=== PATIENT | male | born 1965 | race American Indian/Alaskan Native ===

== ENCOUNTER 2016-12-03 13:18 | Emergency (ER) | payer OTHER ==
[2016-12-03] MEDS ORDERED: CATAPRES PO ONE (13:37)
[2016-12-03 14:31] LABS: Basophils % (Auto) 0.4 % (0.0-1.8); Eosinophils % (Auto) 0.6 % (0.0-4.3); Hematocrit 44.8 % (35.5-45.6); Hemoglobin 15.3 gm/dl (11.8-15.2); Mean Corpuscular HGB Conc 34 % (32-34); Mean Corpuscular Hemoglobin 33 pg (28-32); Mean Corpuscular Volume 98 fl (84-94); Red Blood Count 4.57 M/mm3 (3.65-5.03); Red Cell Distribution Width 13.1 % (13.2-15.2); White Blood Count 5.7 K/mm3 (4.5-11.0)
[2016-12-03 14:32] LABS: Urine Drugs of Abuse Note Disclamer
[2016-12-03 14:41] LABS: Alanine Aminotransferase 62 units/L (7-56); Albumin 4.4 g/dL (3.9-5); Albumin/Globulin Ratio 1.1 %; Alkaline Phosphatase 235 units/L (35-129); Anion Gap 21 mmol/L; Bilirubin,Total 0.6 mg/dL (0.1-1.2); Blood Urea Nitrogen 9 mg/dL (9-20); Calcium 9.4 mg/dL (8.4-10.2); Carbon Dioxide 20 mmol/L (22-30); Glucose 396 mg/dL (75-100); Magnesium 1.9 mg/dL (1.7-2.3); Sodium 130 mmol/L (137-145); Total Protein 8.4 g/dL (6.3-8.2)
[2016-12-03 14:47] LABS: Platelet Count 94 K/mm3 (140-440)
[2016-12-03 14:51] LABS: Bacteria,Urine 1+ /HPF (Negative); Bilirubin,Urine NEG (Negative); Blood,Urine NEG (Negative); Ketones,Urine NEG (Negative); Leukocyte Esterase,Urine NEG (Negative); Mucus,Urine FEW /HPF; Nitrite,Urine NEG (Negative); Protein,Urine <15 mg/dL mg/dL (Negative); Urobilinogen,Urine < 2.0 mg/dL (<2.0); WBC,Urine < 1.0 /HPF (0.0-6.0)
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
[2016-12-03] MEDS ORDERED: NACL 0.9% 1000 ML 1,000 ML IV ONE (19:19)
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
[2016-12-03 22:38] VITALS: BP 148/89
== END 2016-12-03 22:37 | disposition home or self-care (01) ==
LOC: ED 13:18
DX: S06.0X9A Concussion with loss of consciousness of unspecified duration, initial encounter (principal); I10 Essential (primary) hypertension; E11.9 Type 2 diabetes mellitus without complications; R94.5 Abnormal results of liver function studies; V49.40XA Driver injured in collision with unspecified motor vehicles in traffic accident, initial encounter; Y93.89 Activity, other specified; Y99.9 Unspecified external cause status; Y92.410 Unspecified street and highway as the place of occurrence of the external cause
CPT/HCPCS: 36415; 70450; 72040; 80053; 80307; 81001; 82140; 82962; 83036; 83735; 84443; 85025; 93005; 93010; 96361; 96374; 99285; G0480; J7030; 80320; J1815

== ENCOUNTER 2017-12-06 08:56 | Emergency (ER) | payer SELFPAY ==
[2017-12-06 09:45] LABS: Basophils % (Auto) 0.5 % (0.0-1.8); Eosinophils # (Auto) 0.1 K/mm3 (0.0-0.4); Eosinophils % (Auto) 1.2 % (0.0-4.3); Lymphocytes # (Auto) 2.4 K/mm3 (1.2-5.4); Lymphocytes % (Auto) 48.7 % (13.4-35.0); Mean Corpuscular HGB Conc 33 % (32-34); Mean Corpuscular Hemoglobin 33 pg (28-32); Mean Corpuscular Volume 100 fl (84-94); Monocytes # (Auto) 0.4 K/mm3 (0.0-0.8); Monocytes % (Auto) 8.8 % (0.0-7.3); Platelet Count 114 K/mm3 (140-440); Red Cell Distribution Width 13.4 % (13.2-15.2)
[2017-12-06 09:58] LABS: BUN/Creatinine Ratio 20; Blood Urea Nitrogen 12 mg/dL (9-20); Calcium 9.3 mg/dL (8.4-10.2); Hemolysis Index 24
[2017-12-06 10:12] LABS: Bacteria,Urine 1+ /HPF (Negative); Bilirubin,Urine NEG (Negative); Blood,Urine SM (Negative); Color,Urine Straw (Yellow); Mucus,Urine FEW /HPF; Protein,Urine <15 mg/dL mg/dL (Negative); Urobilinogen,Urine < 2.0 mg/dL (<2.0)
[2017-12-06] MEDS ORDERED: NACL 0.9% 1000 ML 1,000 ML IV ONE ×2 (12:53→12:54)
[2017-12-06] MEDS ORDERED: HumuLIN R IV ONE (12:54)
--- NOTE | 2017-12-06 12:56 | Emergency Department Report ---
Blank Doc - Documentation Documentation: Patient is a 52-year-old [place] male who has some mild dizziness today at work. 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 Patient besides the dizziness is had no other symptoms. Patient denies nausea vomiting chest pain shortness of breath. The patient does have some urinary frequency however. Patient's blood sugar is 455 here in the emergency department but does not show any other evidence of DKA. Patient moved to a treatment room at this time for fluids as well as insulin. Recheck sugar and reassess. Also patient is complaining of some penile irritation. Patient is noncircumcised and does have some purulent drainage from the tip of the penis or from around the foreskin. Is unable to determine the exact location.
--- NOTE | 2017-12-06 14:21 | Emergency Department Report ---
ED General Adult HPI - General Chief complaint: Hyperglycemia Stated complaint: HIGH BLOOD SUGAR Time Seen by Provider: 12/06/17 12:42 Source: patient Mode of arrival: Ambulatory Limitations: No Limitations - History of Present Illness Initial comments: This is a 52 y.o. A.A. male that presents with dizziness and headache that started this morning when he woke up. Patient reports going to work at [employer] and feeling very dizzy and lightheaded. He went to the nursing station at work and they took vitals and checked glucose. The first BG 521 and second 471. They sent him directly to the emergency room for evaluation. Patient reports being admitted here last year in December and not sure of all the diagnosis. He is currently not taking anything daily. He also complains of purulent discharge from foreskin on uncircumcised penis. Denies possibility of STD, chest pain, SOB, nausea, vomiting, frequency, urgency, and headache resolved. -: This morning Location: head (headache) Radiation: non-radiation Severity scale (0 -10): 7 Improves with: none Worsens with: movement Associated Symptoms: headaches, other (dizzy) Treatments Prior to Arrival: none - Related Data Previous Rx's Medication Instructions Recorded Last Taken Type Folic Acid [Folvite] 1 mg PO QDAY #30 tablet 12/04/14 Unknown Rx Multivitamin [Multi Vitamin Daily] 1 each PO DAILY #30 tablet 12/04/14 Unknown Rx Pantoprazole Sodium [Protonix] 20 mg PO BID #60 tablet. 12/04/14 Unknown Rx Thiamine [Vitamin B-1] 100 mg PO ONCE #30 tablet 12/04/14 Unknown Rx HYDROcodone/APAP 5-325 [[place] 1 each PO Q6HR PRN #15 tablet 12/03/16 Unknown Rx 5/325] Metformin HCl [Glucophage] 500 mg PO BID #60 tablet 12/03/16 Unknown Rx amLODIPine [Norvasc] 10 mg PO DAILY #30 tab 12/03/16 Unknown Rx Doxycycline Monohydrate 100 mg PO BID 7 Days #14 tablet 12/06/17 Unknown Rx metFORMIN [Glucophage] 500 mg PO BID #60 tablet 12/06/17 Unknown Rx Allergies Allergy/AdvReac Type Severity Reaction Status Date / Time No Known Allergies Allergy Verified 12/03/14 07:15 ED Review of Systems ROS: Stated complaint: HIGH BLOOD SUGAR Other details as noted in HPI Constitutional: weakness. denies: chills, fever Eyes: denies: eye pain, eye discharge, vision change Respiratory: denies: cough, shortness of breath, wheezing Cardiovascular: denies: chest pain, palpitations, edema, syncope Gastrointestinal: denies: abdominal pain, nausea, vomiting, diarrhea Genitourinary: discharge (yellow-greenish discharge). denies: urgency, dysuria , frequency, hematuria, testicular pain, testicular mass Neurological: denies: headache, weakness, paresthesias Psychiatric: denies: anxiety, depression ED Past Medical Hx - Past Medical History Previous Medical History?: Yes Hx Hypertension: Yes (diag 12/03/2016 in ed) Hx Congestive Heart Failure: No Hx Diabetes: Yes (diag 12/03/2016 in ed) Hx Asthma: No Hx COPD: No Hx HIV: No Additional medical history: do not take meds - Surgical History Past Surgical History?: Yes Additional Surgical History: Back - Social History Smoking Status: Current Every Day Smoker Substance Use Type: Alcohol - Medications Home Medications: Home Medications Medication Instructions Recorded Confirmed Last Taken Type Folic Acid [Folvite] 1 mg PO QDAY #30 tablet 12/04/14 Unknown Rx Multivitamin [Multi Vitamin Daily] 1 each PO DAILY #30 tablet 12/04/14 Unknown Rx Pantoprazole Sodium [Protonix] 20 mg PO BID #60 tablet.dr 12/04/14 Unknown Rx Thiamine [Vitamin B-1] 100 mg PO ONCE #30 tablet 12/04/14 Unknown Rx HYDROcodone/APAP 5-325 [[place] 1 each PO Q6HR PRN #15 tablet 12/03/16 Unknown Rx 5/325] Metformin HCl [Glucophage] 500 mg PO BID #60 tablet 12/03/16 Unknown Rx amLODIPine [Norvasc] 10 mg PO DAILY #30 tab 12/03/16 Unknown Rx Doxycycline Monohydrate 100 mg PO BID 7 Days #14 tablet 12/06/17 Unknown Rx metFORMIN [Glucophage] 500 mg PO BID #60 tablet 12/06/17 Unknown Rx ED Physical Exam - General Limitations: No Limitations General appearance: alert, in no apparent distress - Respiratory Respiratory exam: Present: normal lung sounds bilaterally. Absent: respiratory distress - Cardiovascular Cardiovascular Exam: Present: regular rate, normal rhythm, normal heart sounds. Absent: systolic murmur, diastolic murmur, rubs, gallop - GI/Abdominal GI/Abdominal exam: Present: soft, normal bowel sounds. Absent: distended, tenderness, guarding, rebound, rigid, organomegaly, mass - exam: Present: urethral discharge (purulent discharge). Absent: testicular tenderness, scrotal swelling, vertical testicular lie, circumcision ( uncircumcised) - Neurological Exam Neurological exam: Present: alert, oriented X3, normal gait - Psychiatric Psychiatric exam: Present: normal affect, normal mood - Skin Skin exam: Present: warm, dry, intact, normal color. Absent: rash ED Course Vital Signs 12/06/17 12/06/17 09:08 15:53 Temperature 97.8 F 98.7 F Pulse Rate 112 H 81 Respiratory 30 H 15 Rate Blood Pressure 152/98 161/99 O2 Sat by Pulse 98 98 Oximetry ED Medical Decision Making - Lab Data Result diagrams: 12/06/17 09:17 12/06/17 09:17 - Radiology Data Radiology results: report reviewed - Medical Decision Making This is a 52 y.o. male that presents with dizziness and headache while at work today. History of DM2 but never started metformin. Diagnosed last year inpatient here and started on metformin but never continued medication on discharge. Patient was examined by me and Justo Torres. Obtained BMP, CBC, UA, & blood gas. Review labs. Glucose 455 on admission. Given Regular insulin 5 units once IV, NS 1L bolus x 2 once. Glucose 221 after treatment and reports feeling better. Start metformin 500 mg po bid and f/u with Endo or PCP in 24-72 hours. Patient referred to [facility] for management of diabetes. Discussed plan with patient and agreed to plan. No further questions noted by the patient. Discharged home in stable condition. Critical care attestation.: If time is entered above; I have spent that time in minutes in the direct care of this critically ill patient, excluding procedure time. ED Disposition Clinical Impression: Hyperglycemia, Infection of penis, Penile discharge Uncontrolled diabetes mellitus type 2 without complications Qualifiers: Diabetes mellitus assisted insulin use: without exterminator use Qualified Code(s ): E11.65 - Type 2 diabetes mellitus with hyperglycemia Disposition: - TO HOME OR SELFCARE Is pt being admited?: No Does the pt Need Aspirin: No Condition: Stable Instructions: Diabetes Mellitus Type 2 in Adults (ED) Additional Instructions: Never discontinue metformin without discussion with doctor. Low blood sugar is often accompanied by symptoms such as tachycardia, sweating, shakiness, intense hunger, or confusion, and must be dealt with promptly by eating a carbohydrate such as apple or drink juice. After self-treatment, blood sugar should be checked if possible. Return to ER or f/u with ER promptly is blood glucose drops below 70 or greater than 150 so that therapy may be adjusted. Eat a carbohydrate snack prior to exercise if blood glucose is less than 100. Follow up with Primary Care Provider in 24-72 days. Prescriptions: Doxycycline Monohydrate 100 mg PO BID 7 Days #14 tablet metFORMIN [Glucophage] 500 mg PO BID #60 tablet Referrals: [facility] [Outside] - 3-5 Days [facility] [Outside] - 3-5 Days [facility] [Outside] - 3-5 Days Forms: Work/School Release Form(ED) Time of Disposition: 16:15 Print Language: GREENLANDIC
[2017-12-06 16:06] VITALS: BP 161/99
== END 2017-12-06 16:39 | disposition home or self-care (01) ==
LOC: ED 08:56
DX: E11.65 Type 2 diabetes mellitus with hyperglycemia (principal); N48.29 Other inflammatory disorders of penis; R36.9 Urethral discharge, unspecified; F17.200 Nicotine dependence, unspecified, uncomplicated; I10 Essential (primary) hypertension
CPT/HCPCS: 36415; 80048; 81001; 82805; 82962; 85025; 93005; 93010; 96361; 96374; 99284; J7030; J1815